=== PATIENT | female | born 1990 | race Two or more races ===

== ENCOUNTER 2022-08-11 23:37 | Emergency (ER) | payer OTHER ==
[~2022-08-11] VITALS: Ht 165.1 cm; Wt 74.8 kg
[2022-08-12] MEDS ORDERED: ZITHROMAX500 MG PO (03:25)
[2022-08-12] MEDS ORDERED: PROMETH-CODEIN 65 ML PO (03:25)
[2022-08-12] MEDS ORDERED: MUCINEX DM ER1 EAC1 PO (03:25)
[2022-08-12] MEDS ORDERED: BUDESONIDE0.5 MG/2 M IH (03:25)
[2022-08-12] MEDS ORDERED: IPRAT-ALBUT 0.5-3 ML IH (03:25)
[2022-08-12] MEDS ORDERED: [UNRECOGNIZED DRUG - OTHER] (03:34)
== END 2022-08-12 03:35 ==
LOC: ER 23:37
DX: J06.9 Acute upper respiratory infection, unspecified (principal); A49.3 Mycoplasma infection, unspecified site; Z20.822 Contact with and (suspected) exposure to COVID-19